=== PATIENT | female | born 2000 | race Caucasian/White ===

== ENCOUNTER 2021-10-13 10:37 | Inpatient (IN) ==
[2021-10-13] MEDS ORDERED: METHYLERGONOVINE 0.2 MG/1 ML AMP IM PRN (11:16)
[2021-10-13] MEDS ORDERED: miSOPROStoL 200 MCG TABLET RECTAL PRN (11:16)
[2021-10-13] MEDS ORDERED: CARBOPROST TROMETHAMINE 250 MCG/ML AMP IM PRN (11:16)
[2021-10-13] MEDS ORDERED: OXYTOCIN/LR 20 UNIT/1,000 ML BAG IV ONE (11:16)
[2021-10-13] MEDS ORDERED: LACTATED RINGERS 500 ML IV PRN (11:16)
[2021-10-13] MEDS ORDERED: ONDANSETRON 4 MG/2 ML VIAL IV PRN (11:16)
[2021-10-13] MEDS ORDERED: LACTATED RINGERS 1,000 ML IV ONE (11:16)
[2021-10-13] MEDS ORDERED: TRANEXAMIC ACID 1,000 MG in SODIUM CHLORIDE 0.9% 100 ML IV PRN ×2 (11:16→13:00)
[2021-10-13] MEDS ORDERED: AMPICILLIN INJ 2,000 MG in SODIUM CHLORIDE 0.9% 100 ML IV ONE (11:23)
[2021-10-13 11:34] LABS: Basophils % 0.2 % (0.0-0.8); Eosinophils # 0.1 10*3/uL (0.0-0.87); Eosinophils % 1.2 % (0.00-10.9); Hematocrit 29.9 VOL% (35.7-47.0); Hemoglobin 10.2 GM/DL (12.0-16.0); Immature Granulocytes % 1.6 %; Immature Granulocytes Absolute 0.19 #; Lymphocytes # 1.6 10*3/uL (1.4-4.0); Lymphocytes % 13.4 % (21.3-54.2); Mean Corpuscular HGB Conc 34.1 GM/DL (32-36); Mean Corpuscular Volume 87.9 FL (87-102); Mean Platelet Volume 10.5 FL (9.6-12.0); Monocytes # 0.7 10*3/uL (0.11-0.8); Monocytes % 6.3 % (1.7-12.7); Neutrophils % 77.3 % (38.7-73.9); Platelet Count 330 T/CUMM (130-400); Red Cell Distribution Width 14.9 % (9.3-17.3); White Blood Count 11.8 T/CUMM (4-12)
[2021-10-13] MEDS: LACTATED RINGERS 1,000 ML IV SCH ×2 (11:51→18:11)
[2021-10-13] MEDS ORDERED: OXYTOCIN/LR 20 UNIT/1,000 ML BAG IV SCH (13:00)
[2021-10-13] MEDS: AMPICILLIN INJ 1,000 MG in SODIUM CHLORIDE 0.9% 100 ML IV SCH ×2 (15:51→19:47)
[2021-10-13] MEDS ORDERED: FAMOTIDINE 20 MG/2 ML VIAL IV ONE ×2 (16:33→17:00)
[2021-10-13] MEDS ORDERED: PROMETHAZINE 25 MG/1 ML VIAL IM ONE ×2 (16:33→17:00)
[2021-10-13] MEDS ORDERED: NALOXONE 0.4 MG/ML VIAL IV PRN ×2 (16:33→16:37)
[2021-10-13] MEDS ORDERED: diphenhydrAMINE 50 MG/1 ML VIAL IV PRN ×4 (16:33→16:37)
[2021-10-13] MEDS ORDERED: hydrOXYzine HCL 25 MG/1 ML VIAL IM PRN ×2 (16:33→16:37)
[2021-10-13] MEDS ORDERED: CITRIC ACID/SODIUM CITRATE 30 ML UDCUP PO ONE (16:33)
[2021-10-13] MEDS ORDERED: ePHEDrine 50 MG/ML VIAL IV PRN ×2 (16:33→16:37)
[2021-10-13] MEDS ORDERED: fentaNYL 2 MCG/ROPIV 0.2% EPID 100 ML EPIDURAL SCH ×2 (17:00)
[2021-10-13] MEDS ORDERED: ONDANSETRON 4 MG/2 ML VIAL IV ONE (17:00)
[2021-10-13 18:13] LABS: Mucus,Urine Occasional /LPF (Occasional); RBC,Urine <1 /HPF (0-4)
[2021-10-13 18:16] LABS: Bilirubin,Urine Negative (Negative); Glucose,Urine (UA) Negative (Negative); Ketones,Urine 40 mg/dL (Negative); Nitrite,Urine Negative (Negative); Protein,Urine Negative (Negative); Urine Appearance Clear (Clear); Urine Color Yellow (Yellow); Urine Specific Gravity 1.015 (1.001-1.035)
[2021-10-13 18:17] LABS: Blood, Urine Negative (Negative); Urine Urobilinogen 0.2 eU/dL (<2.0)
[2021-10-13 19:06] LABS: Albumin 2.4 G/DL (3.4-5.0); Bilirubin,Total 0.5 MG/DL (0.20-1.00); Calcium 8.2 MG/DL (8.5-10.1); Potassium 3.7 MMOL/L (3.5-5.1); Total Protein 6.1 G/DL (6.4-8.2)
[2021-10-13] MEDS ORDERED: LABETALOL 100 MG/20 ML VIAL IV PRN ×3 (19:54→20:02)
[2021-10-13] MEDS ORDERED: NIFEdipine 10 MG CAPSULE PO PRN (19:54)
[2021-10-13] MEDS ORDERED: hydrALAZINE 20 MG/1 ML VIAL IV PRN (19:54)
[2021-10-13] MEDS ORDERED: NIFEdipine 10 MG CAPSULE PO ONE (20:30)
[2021-10-13] MEDS: LABETALOL 100 MG TABLET PO SCH (20:35)
[2021-10-14] MEDS ORDERED: LANOLIN 50% CREAM 0.3 OZ TUBE TOP PRN (00:53)
[2021-10-14] MEDS ORDERED: OXYTOCIN/LR 20 UNIT/1,000 ML BAG IV ONE (00:53)
[2021-10-14] MEDS ORDERED: ACETAMINOPHEN 325 MG TABLET PO PRN (00:53)
[2021-10-14] MEDS ORDERED: RHO(D) IMMUNE GLOBULIN 300 MCG SYRINGE IM ONE (00:53)
[2021-10-14] MEDS ORDERED: BENZOCAINE 20%/MENTHOL 0.5% SPRAY 56 GM CAN TOP PRN (00:53)
[2021-10-14] MEDS ORDERED: HYDROCORTISONE 2.5% RECTAL CREAM 30 GM TUBE TOP PRN (00:53)
[2021-10-14] MEDS ORDERED: BISACODYL 10 MG SUPP RECTAL PRN (00:53)
[2021-10-14] MEDS ORDERED: DIPH/TET/ACEL PERT BOOSTER VACCINE 0.5 ML VIAL IM ONE (00:53)
[2021-10-14] MEDS ORDERED: ONDANSETRON 4 MG/2 ML VIAL IV PRN (00:53)
[2021-10-14] MEDS ORDERED: MEASLES/MUMPS/RUBELLA VACCINE 0.5 ML VIAL SUBCUT ONE (00:53)
[2021-10-14] MEDS ORDERED: ACETAMINOPHEN/CODEINE 300-30 MG TABLET PO PRN ×2 (00:57)
[2021-10-14] MEDS: IBUPROFEN 800 MG TABLET PO PRN ×2 (02:17→22:08)
[2021-10-14] MEDS: WITCH HAZEL PADS 100/JAR TOP PRN (03:03)
[2021-10-14] MEDS: LABETALOL 100 MG TABLET PO SCH ×3 (04:45→22:59)
[2021-10-14] MEDS: MULTIVITAMIN (PRENATAL) TABLET PO SCH (09:18)
[2021-10-14] MEDS: FERROUS SULFATE 325 MG TABLET PO SCH (09:18)
[2021-10-14] MEDS: DOCUSATE SODIUM 100 MG CAPSULE PO SCH ×2 (09:18→22:07)
[2021-10-14] MEDS: FUROSEMIDE 20 MG TABLET PO SCH (09:19)
[2021-10-15 05:12] LABS: Basophils % 0.2 % (0.0-0.8); Eosinophils # 0.1 10*3/uL (0.0-0.87); Eosinophils % 1.1 % (0.00-10.9); Hematocrit 23.1 VOL% (35.7-47.0); Immature Granulocytes % 0.9 %; Immature Granulocytes Absolute 0.11 #; Lymphocytes # 2.3 10*3/uL (1.4-4.0); Lymphocytes % 19.1 % (21.3-54.2); Mean Corpuscular HGB Conc 33.3 GM/DL (32-36); Mean Corpuscular Volume 89.9 FL (87-102); Mean Platelet Volume 11.1 FL (9.6-12.0); Monocytes # 0.6 10*3/uL (0.11-0.8); Monocytes % 4.9 % (1.7-12.7); Neutrophils % 73.8 % (38.7-73.9); Platelet Count 264 T/CUMM (130-400); Red Blood Count 2.57 MC/CUMM (3.8-5.5); Red Cell Distribution Width 15.2 % (9.3-17.3); White Blood Count 12.2 T/CUMM (4-12)
[2021-10-15 05:13] LABS: Hemoglobin 7.7 GM/DL (12.0-16.0)
[2021-10-15 05:30] LABS: Hypochromia 1+; Platelet Estimate Normal
[2021-10-15] MEDS: LABETALOL 100 MG TABLET PO SCH ×2 (05:33→15:55)
[2021-10-15] MEDS: FERROUS SULFATE 325 MG TABLET PO SCH (09:30)
[2021-10-15] MEDS: DOCUSATE SODIUM 100 MG CAPSULE PO SCH ×2 (09:31→21:22)
[2021-10-15] MEDS: FUROSEMIDE 20 MG TABLET PO SCH (09:31)
[2021-10-15] MEDS: MULTIVITAMIN (PRENATAL) TABLET PO SCH (09:32)
[2021-10-15] MEDS: WITCH HAZEL PADS 100/JAR TOP PRN (22:44)
[2021-10-16] MEDS: LABETALOL 100 MG TABLET PO SCH ×2 (00:14→10:27)
[2021-10-16] MEDS: FERROUS SULFATE 325 MG TABLET PO SCH (10:27)
[2021-10-16] MEDS: MULTIVITAMIN (PRENATAL) TABLET PO SCH (10:27)
[2021-10-16] MEDS: DOCUSATE SODIUM 100 MG CAPSULE PO SCH (10:28)
[2021-10-16] MEDS: FUROSEMIDE 20 MG TABLET PO SCH (10:28)
[2021-10-16] MEDS ORDERED: DIPH/TET/ACEL PERT BOOSTER VACCINE 0.5 ML VIAL IM ONE (12:15)
[2021-10-16 12:44] VITALS: BP 135/76
== END 2021-10-16 14:10 | disposition home or self-care (01) | DRG 807 ==
LOC: N.LD 10:37 → N.OB 10-14 03:30
PROVIDERS: ADMIT Obstetrics & Gynecology; ATTEND Obstetrics & Gynecology